=== PATIENT | female | born 1970 ===

== ENCOUNTER → 2017-06-27 | Day surgery (SDC) | payer OTHER ==
[~2017-06-27] VITALS: Ht 152.4 cm; Wt 42.3 kg
[~2017-06-27] MED LIST: *HYDROmorphone PF 1 MG VIAL PERIprocedural Use ONLY ONE; CHLORHEXIDINE GLUCONATE 2 % 1 PACK (2 CLOTHS) TOPICAL PRN; KETOROLAC TROMETHAMINE 30 MG/ML (IVP) VIAL ONE; LACTATED RINGER'S 1000 ML IV PRN; METOPROLOL TARTRATE 25 MG TAB PO PRN; MORPHINE SULFATE 4 MG/ML INJ ONE; POVIDONE IODINE 5% (ANTISEPSIS KIT) 4 APPLICATIONS EACH NARE PRN; SODIUM CHLORID 0.9% 500 ML IV PRN; ceFAZolin 1,000 MG/NS 100 ML IV SCH
[2017-06-27 07:43] LABS: BLOOD, URINE TRACE (NEG); GLUCOSE,URINE NEG (NEG); KETONE, URINE NEG (NEG); NITRITE,URINE NEG (NEG); PH, URINE 5.5 (5.0-8.5)
[2017-06-27 07:55] LABS: COMMENT (UR) CULT NOT INDICATED; CULTURE IF INDICATED CULT NOT INDICATED; METHOD OF COLLECTION CLEAN CATCH; RBC, URINE 0-3 /hpf (0-3); SQUAMOUS EPITHELIAL CELL URINE > 8 /hpf (0-5); URINE COLOR YELLOW (YELLW/STRAW); WBC, URINE 0-2 /hpf (0-5)
[2017-06-27 07:58] LABS: HEMATOCRIT 41.7 % (35.0-46.0); MEAN CELL VOLUME 90.7 FL (80.0-100.0); MEAN CORPUSCULAR HEMOGLOBIN 29.4 PG (27.0-34.0); MEAN CORPUSCULAR HGB CONC 32.4 % (32.0-36.0); PLATELET COUNT 290 TH/MM3 (150-450); RED CELL DISTRIBUTION WIDTH 12.4 % (11.6-17.2); REVIEW FLAG FINAL; WHITE BLOOD COUNT 5.6 TH/MM3 (4.0-11.0)
--- NOTE | 2017-06-27 10:45 | RADRPT ---
EXAM DATE/TIME: 06/27/2017 10:38 [place] COMPARISON: No previous studies available for comparison. INDICATIONS : Instrument count in OR, lost needle. MEDICAL HISTORY : unobtainable SURGICAL HISTORY : unobtainable ENCOUNTER: Initial ACUITY: 1 day PAIN SCORE: Non-responsive. LOCATION: Bilateral abdomen FINDINGS: The lost needle is seen midline overlying the L2-3 interspace. Surgical instruments are noted. Subc utaneous air is evident. CONCLUSION: Needle overlying L2-3 and was removed by history. Carlos Walters MD FACR on June 27, 2017 at 10:42 Board Certified Radiologist. This report was verified electronically.
[2017-06-27 11:00] VITALS: PULSE 76
--- NOTE | 2017-06-27 11:44 | MP ---
cc: KISHORE MCGOVERN MD DATE OF SURGERY 06/27/2017 PREOPERATIVE DIAGNOSES 1. Left adnexal cyst. 2. Left lower quadrant pain. POSTOPERATIVE DIAGNOSES 1. Left adnexal cyst. 2. Left lower quadrant pain. 3. Ovarian torsion. SURGERY Laparoscopic left salpingo-oophorectomy. SURGEON MD Tyron ANESTHESIA MD [facility] endotracheal. COMPLICATIONS Needle broke at closure of the incision and an x-ray was required to retrieve it. ESTIMATED BLOOD LOSS 50 cc. INDICATIONS This 45-year-old female presented to the emergency room with acute left lower quadrant pain approximately a month ago. At that time a left adnexal cyst was identified but the pain did improve. The patient came to see me and I did another ultrasound and found the cyst to be approximately 2 cm larger in only one month's time. The patient was initially going to observe the cyst to see if it would resolve but then decided with the persistent pain to have it removed. She initially considered having her right adnexa removed as well but then decided against it. FINDINGS At the time of surgery the patient was found to have a paratubal cyst approximately 9 cm in longest axis and occupying the left pelvis anterior to the uterus. There was evidence of torsion of the entire adnexa at the infundibulopelvic ligament; however, there was some blood supply to the adnexa. At closure of the patient's umbilical incision, the UR6 needle used at the level of the fascia broke off. It could not be seen or palpated initially but with the help of an x-ray taken on the operating room table, its position was verified and it was found and extracted. PROCEDURE The patient was taken to the operating room and placed supine on the operating room table. After general endotracheal anesthetic she was prepped and draped in [facility] stirru. An open-sided speculum was placed in the vagina. The anterior lip of the cervix was grasped with a single-tooth tenaculum. The cervix was dilated carefully to accept a Hulka uterine manipulator which was placed without difficulty. The other instruments were removed. After regloving, attention was turned to the abdomen. A 10-mm incision was made superior to the umbilicus due to the patient's small size. A Veress needle was used to instill 2 liters of CO2, followed by placement of the trocar. Under direct visualization and using transillumination to avoid major blood vessels or other structures, 5-mm ports were put in the right and left lower quadrant approximately at the level of the umbilicus. The findings described above were then noted. A harmonic ACS device was used to divide the uteroovarian ligament and to separate the tube from the uterus. The point of torsion at the infundibulopelvic ligament was then identified and also transected using the ACS device. The mass being free, it was placed in an EndoCatch bag. The first EndoCatch bag did not open properly so a second one was used. The mass was put in the bag and deflated with a laparoscopic needle. The fluid inside was clear and it was obvious that it was a paratubal cyst rather than an ovarian or fallopian tube cyst. The bag containing the left adnexa was then brought up to the 10-mm incision without difficulty. Laparoscopic survey showed almost no blood loss intraabdominally, so the pneumoperitoneum was released and the larger incision was closed with an 0 Vicryl at the level of the fascia. On passing the needle through the fascia, it passed easily on the patient's left but on passing it through the fascia on the patient's right side of the incision, the needle broke off at the needle driver engineer. Careful palpation and survey with the laparoscope without moving the patient's position was performed without visualizing or palpating the needle. Therefore intraabdominal x-ray was taken and the position of the needle was verified. The supraumbilical incision was then extended approximately 1 cm and explored to find the needle. The broken needle tip combined with the stub of the needle accounted for the entire needle in length and curvature. Another 0 Vicryl was then used to close the fascia in [id number] fashion. Subcuticular closure with 4-0 Monocryl was placed. Dermabond was applied as a dressing. The Hulka uterine manipulator was removed and the patient was transferred to the Recovery Room awake and breathing on her own. She tolerated the procedure well. Sponge, needle and instrument counts were correct. She received 1 gram of Ancef preop. MD EARNEST Montgomery/ERIC /11:06 AM /11:14 AM
[2017-06-27 12:30] VITALS: PULSE 66; TEMP 97.6
[2017-06-27 13:50] VITALS: BP 131/75; PULSE 77; RESP 14; O2SAT 98
== END | disposition home or self-care (01) ==
LOC: PHSDC 07:04
PROVIDERS: ATTEND Obstetrics & Gynecology
DX: N83.02 Follicular cyst of left ovary (principal); N83.8 Other noninflammatory disorders of ovary, fallopian tube and broad ligament
CPT/HCPCS: 00840; 36415; 58661; 74000; 81001; 85027; 88305; J0690; J1170; J1885; J2270; J7120